=== PATIENT | female | born 1995 | race African-American/Black ===

== ENCOUNTER 2021-01-30 18:43 | Emergency (ER) | payer OTHER ==
[~2021-01-30] VITALS: Ht 165.1 cm; Wt 59.1 kg
[2021-01-30 18:52] VITALS: BP 134/103
== END 2021-01-30 21:00 | disposition left against medical advice (07) ==
LOC: EMS 18:43
DX: M79.604 Pain in right leg (principal); Z53.21 Procedure and treatment not carried out due to patient leaving prior to being seen by health care provider

== ENCOUNTER 2021-12-09 07:34 | Emergency (ER) | payer OTHER ==
[~2021-12-09] VITALS: Ht 165.1 cm; Wt 56.8 kg
[2021-12-09 09:17] VITALS: BP 137/88
== END 2021-12-09 10:30 | disposition home or self-care (01) ==
LOC: EMS 07:39
DX: T81.49XA Infection following a procedure, other surgical site, initial encounter (principal); F32.9 Major depressive disorder, single episode, unspecified; F41.9 Anxiety disorder, unspecified; F12.90 Cannabis use, unspecified, uncomplicated; F17.210 Nicotine dependence, cigarettes, uncomplicated
CPT/HCPCS: 99283; Z7502